=== PATIENT | female | born 1995 | race Hispanic/Latino ===

== ENCOUNTER 2022-08-26 11:09 | Emergency (ER) | payer OTHER | END 2022-08-26 15:19 | disposition home or self-care (01) | LOC: ERS 11:09 | DX: Z04.3 Encounter for examination and observation following other accident (principal); Z3A.20 20 weeks gestation of pregnancy; W19.XXXA Unspecified fall, initial encounter | CPT/HCPCS: 76815 ==

== ENCOUNTER 2022-09-12 14:33 | Outpatient (CLI) | payer OTHER | END 2022-09-12 14:34 | disposition home or self-care (01) | LOC: BICULT 14:33 | PROVIDERS: ATTEND Nurse Practitioner Women's Health | DX: Z34.02 Encounter for supervision of normal first pregnancy, second trimester (principal); Z3A.23 23 weeks gestation of pregnancy | CPT/HCPCS: 76805 ==